=== PATIENT | female | born 1955 | race Two or more races ===

== ENCOUNTER → 2019-11-05 07:20 | Outpatient (CLI) | payer OTHER | END | disposition home or self-care (01) | LOC: LAB 07:20 | PROVIDERS: ATTEND Internal Medicine | DX: E03.8 Other specified hypothyroidism (principal); I10 Essential (primary) hypertension; M54.5 Low back pain; Z01.810 Encounter for preprocedural cardiovascular examination; E55.9 Vitamin D deficiency, unspecified; F17.200 Nicotine dependence, unspecified, uncomplicated; Z12.11 Encounter for screening for malignant neoplasm of colon; Z12.31 Encounter for screening mammogram for malignant neoplasm of breast ==

== ENCOUNTER 2019-11-05 08:24 | Outpatient (CLI) | payer OTHER | END 2019-11-05 08:36 | disposition home or self-care (01) | LOC: MAMO-SONO 08:24 | PROVIDERS: ATTEND Internal Medicine | DX: Z12.31 Encounter for screening mammogram for malignant neoplasm of breast (principal); I10 Essential (primary) hypertension; M54.5 Low back pain; Z01.810 Encounter for preprocedural cardiovascular examination; E03.8 Other specified hypothyroidism; E55.9 Vitamin D deficiency, unspecified; Z87.891 Personal history of nicotine dependence; Z12.11 Encounter for screening for malignant neoplasm of colon ==

== ENCOUNTER 2022-09-11 09:02 | Outpatient (CLI) | payer OTHER | END 2022-09-11 09:27 | disposition home or self-care (01) | LOC: MRI 09:02 | PROVIDERS: ATTEND Orthopaedic Surgery | DX: S83.200A Bucket-handle tear of unspecified meniscus, current injury, right knee, initial encounter (principal); M25.561 Pain in right knee; M25.562 Pain in left knee | CPT/HCPCS: 73721 ==

== ENCOUNTER 2022-10-04 07:31 | Outpatient (CLI) | payer OTHER | END 2022-10-04 07:34 | disposition home or self-care (01) | LOC: RAD 07:31 | PROVIDERS: ATTEND Orthopaedic Surgery | DX: R07.9 Chest pain, unspecified (principal) ==

== ENCOUNTER 2022-11-30 09:09 | Emergency (ER) | payer OTHER ==
[~2022-11-30] VITALS: Ht 157.5 cm; Wt 58.1 kg
[2022-11-30 11:13] LABS: PH,URINE 6.5 (5.0-8.0); URINE APPEARANCE Clear; URINE BILIRRUBIN Negative (NEGATIVE); URINE BLOOD Negative; URINE COLOR Yellow; URINE GLUCOSE Negative (NEGATIVE); URINE LEUKOCYTE Negative; URINE NITRATE Negative; URINE PROTEIN Negative (NEGATIVE); URINE UROBILINOGEN 0.2 E.U./dl
[2022-11-30 11:18] LABS: HEMATOCRIT 35.4 % (36.0-45.00); HEMOGLOBIN 11.9 g/dL (12.0-15.00); MEAN CELL VOLUME 99.2 fL (80.00-100.00); MEAN CORPUSCULAR HEMOGLOBIN 33.4 pg (27.00-32.0); MEAN CORPUSCULAR HGB CONC 33.7 g/dl (32.0-36.0); PLATELET COUNT 435 K/uL (150-450); RED BLOOD COUNT 3.57 M/uL (4.00-6.00); RED CELL DISTRIBUTION WIDTH 13.8 % (11.5-14.5); URINE BACTERIA 426.8 uL (0.0-1933); URINE WBC 5.7 uL (0.0-23.2)
[2022-11-30 11:51] LABS: ALBUMIN 3.2 gm/dL (3.4-5.0); BILIRUBIN TOTAL 0.74 mg/dL (0.3-1.2); BILIRUBIN,CONJUGATED 0.28 mg/dL (0.0-0.2); BILIRUBIN,UNCONJUGATED 0.46 mg/dL (0.0-0.6); CALCIUM 9.5 mg/dL (8.5-10.1); CREATININE SERUM 0.62 mg/dL (0.55-1.02); GFR 96.6; POTASSIUM 5.08 mEq/L (3.5-5.1)
== END 2022-11-30 16:24 | disposition home or self-care (01) ==
LOC: ER 09:10
PROVIDERS: General Practice
DX: K59.09 Other constipation (principal); Z88.0 Allergy status to penicillin
CPT/HCPCS: 36415; 74177; 96365; 99284; J3490; J7030; Q9965

== ENCOUNTER 2022-12-14 06:45 | Emergency (ER) | payer OTHER ==
[~2022-12-14] VITALS: Ht 157.5 cm; Wt 54.4 kg
[2022-12-14 09:14] LABS: HEMATOCRIT 33.8 % (36.0-45.00); HEMOGLOBIN 11.2 g/dL (12.0-15.00); MEAN CELL VOLUME 96.7 fL (80.00-100.00); MEAN CORPUSCULAR HEMOGLOBIN 31.9 pg (27.00-32.0); PLATELET COUNT 380 K/uL (150-450); RED CELL DISTRIBUTION WIDTH 14.2 % (11.5-14.5)
[2022-12-14 09:50] LABS: CALCIUM 9.1 mg/dL (8.5-10.1); CREATININE SERUM 0.82 mg/dL (0.55-1.02); GFR 69.96; POTASSIUM 4.82 mEq/L (3.5-5.1)
== END 2022-12-14 14:24 | disposition home or self-care (01) ==
LOC: ER 06:45
PROVIDERS: Emergency Medicine
DX: R14.0 Abdominal distension (gaseous) (principal); R16.0 Hepatomegaly, not elsewhere classified; J90 Pleural effusion, not elsewhere classified; Z88.0 Allergy status to penicillin

== ENCOUNTER 2022-12-28 15:24 | Inpatient (IN) | payer OTHER ==
[~2022-12-28] VITALS: Ht 157.5 cm; Wt 64.0 kg
[2022-12-28] MEDS ORDERED: FAMOTIDINE40 MG PO (15:33)
[2022-12-28] MEDS ORDERED: AMLODIPINE-BEN1 EAC2 PO (15:33)
[2022-12-28] MEDS ORDERED: ST. JOSEPH ASPI81 M2 PO (15:33)
[2022-12-28] MEDS ORDERED: FENOFIBRIC ACI135 MG PO (15:34)
[2022-12-28 17:30] LABS: URINE APPEARANCE Cloudy; URINE BILIRRUBIN Small (NEGATIVE); URINE BLOOD Negative; URINE COLOR Dark Yellow; URINE GLUCOSE Negative (NEGATIVE); URINE LEUKOCYTE Small; URINE NITRATE Negative; URINE PROTEIN Negative (NEGATIVE)
[2022-12-28 17:31] LABS: URINE EPITHELIAL CELLS 27.3 uL (0.0-38.8); URINE RBC 20.9 uL (0.0-20.8)
[2022-12-28 17:32] LABS: MEAN CELL VOLUME 97.8 fL (80.00-100.00); MEAN CORPUSCULAR HGB CONC 31.3 g/dl (32.0-36.0); RED BLOOD COUNT 3.27 M/uL (4.00-6.00); RED CELL DISTRIBUTION WIDTH 14.6 % (11.5-14.5)
[2022-12-28 17:43] LABS: INR 1.1; PARTIAL THROMBOPLASTIN TIME 29.3 SECONDS (22.0-34.0); PROTHROMBIN TIME 11.5 SECONDS (9.0-11.5)
[2022-12-28 17:45] LABS: ABG PH 7.418 (7.35-7.45); ABG PO2 64.1 mmHg (80-100); ABG pCO2 28.2 mmHg (35-45); BASE EXCESS -5.1 mmol/l; BICARBONATE 17.8 mmol/l (23-25); SaO2 92.2 %; Tco2 18.7 mmol/l
[2022-12-28 17:46] LABS: allen test SATISFACTORY; o2 21 %; puncture site RADIAL LEFT
[2022-12-28 17:46] LABS: MEAN CORPUSCULAR HEMOGLOBIN 30.5 pg (27.00-32.0); PLATELET COUNT 733 K/uL (150-450)
[2022-12-28 17:48] LABS: ALBUMIN 2.4 gm/dL (3.4-5.0); BILIRUBIN TOTAL 2.74 mg/dL (0.3-1.2); BILIRUBIN,CONJUGATED 2.44 mg/dL (0.0-0.2); BILIRUBIN,UNCONJUGATED 0.3 mg/dL (0.0-0.6); CALCIUM 9.6 mg/dL (8.5-10.1); CREATININE SERUM 1.66 mg/dL (0.55-1.02); GLOBULINA 4.7 G/DL (2.4-3.5); POTASSIUM 5.36 mEq/L (3.5-5.1); TOTAL PROTEIN 7.1 gm/dL (6.4-8.2)
[2022-12-28 17:51] LABS: URINE MUCUS MODERATE
[2022-12-28 23:46] LABS: CKMB 2.6 NG/ML (0.5-3.6)
[2022-12-29 07:31] LABS: INR 1.09; PARTIAL THROMBOPLASTIN TIME 31.9 SECONDS (22.0-34.0); PROTHROMBIN TIME 11.4 SECONDS (9.0-11.5)
[2022-12-29 07:35] LABS: HEMATOCRIT 29.2 % (36.0-45.00); HEMOGLOBIN 9.4 g/dL (12.0-15.00); MEAN CELL VOLUME 98.6 fL (80.00-100.00); MEAN CORPUSCULAR HEMOGLOBIN 31.6 pg (27.00-32.0); MEAN CORPUSCULAR HGB CONC 32.1 g/dl (32.0-36.0); PLATELET COUNT 624 K/uL (150-450); RED BLOOD COUNT 2.96 M/uL (4.00-6.00); RED CELL DISTRIBUTION WIDTH 14.5 % (11.5-14.5)
[2022-12-29 07:49] LABS: URINE APPEARANCE Turbid; URINE BILIRRUBIN Small (NEGATIVE); URINE BLOOD Moderate; URINE COLOR Dark Yellow; URINE GLUCOSE Negative (NEGATIVE); URINE LEUKOCYTE Large; URINE NITRATE Negative; URINE UROBILINOGEN 0.2 E.U./dl
[2022-12-29 07:53] LABS: URINE RBC 96.8 uL (0.0-20.8)
[2022-12-29 07:59] LABS: ALBUMIN 2.8 gm/dL (3.4-5.0); BILIRUBIN TOTAL 2.25 mg/dL (0.3-1.2); BILIRUBIN,CONJUGATED 1.97 mg/dL (0.0-0.2); BILIRUBIN,UNCONJUGATED 0.28 mg/dL (0.0-0.6); CALCIUM 9.3 mg/dL (8.5-10.1); CREATININE SERUM 1.73 mg/dL (0.55-1.02); GFR 29.56; GLOBULINA 3.4 G/DL (2.4-3.5); TOTAL PROTEIN 6.2 gm/dL (6.4-8.2)
[2022-12-29 08:07] LABS: CKMB 2.8 NG/ML (0.5-3.6)
[2022-12-29 08:22] LABS: URINE EPITHELIAL CELLS > 201.7 uL (0.0-38.8)
[2022-12-29 08:23] LABS: URINE PROTEIN 100 (NEGATIVE)
[2022-12-29 08:30] LABS: URINE YEAST NEGATIVE /hpf
[2022-12-29 09:22] LABS: C-REACTIVE PROTEIN 10.5 MG/DL (0.00-0.29); POTASSIUM 5.97 mEq/L (3.5-5.1)
[2022-12-29 16:05] LABS: CKMB 3.5 NG/ML (0.5-3.6)
[2022-12-31 06:25] LABS: HEMATOCRIT 27.1 % (36.0-45.00); MEAN CELL VOLUME 96.6 fL (80.00-100.00); MEAN CORPUSCULAR HEMOGLOBIN 32.2 pg (27.00-32.0); MEAN CORPUSCULAR HGB CONC 33.3 g/dl (32.0-36.0); PLATELET COUNT 606 K/uL (150-450); RED BLOOD COUNT 2.81 M/uL (4.00-6.00); RED CELL DISTRIBUTION WIDTH 14.7 % (11.5-14.5)
[2022-12-31 07:30] LABS: ALBUMIN 2.5 gm/dL (3.4-5.0); BILIRUBIN TOTAL 1.9 mg/dL (0.3-1.2); CALCIUM 8.8 mg/dL (8.5-10.1); CREATININE SERUM 1.51 mg/dL (0.55-1.02); GFR 34.58; GLOBULINA 3.3 G/DL (2.4-3.5); POTASSIUM 5.62 mEq/L (3.5-5.1); TOTAL PROTEIN 5.8 gm/dL (6.4-8.2)
[2022-12-31 19:28] LABS: BILI PERITONEAL FLUID 2.41 mg/dl; TP PERITONEAL FLUID 4.5 g/dl
== END 2023-01-01 12:25 | disposition home or self-care (01) | DRG 442 ==
LOC: ER 15:24 → MEDI 20:49
PROVIDERS: General Practice; Radiology Vascular & Interventional Radiology; ADMIT Internal Medicine; ATTEND Internal Medicine
PROC: BW40ZZZ Ultrasonography of Abdomen (ICD-10-PCS; 2022-12-28)
PROC: BW21ZZZ Computerized Tomography (CT Scan) of Abdomen and Pelvis (ICD-10-PCS; 2022-12-28)
PROC: BW21ZZZ Computerized Tomography (CT Scan) of Abdomen and Pelvis (ICD-10-PCS; 2022-12-29)
PROC: 0W9G3ZX Drainage of Peritoneal Cavity, Percutaneous Approach, Diagnostic (ICD-10-PCS; principal; 2022-12-31)
PROC: 0F923ZX Drainage of Left Lobe Liver, Percutaneous Approach, Diagnostic (ICD-10-PCS; 2022-12-31)
DX: K76.9 Liver disease, unspecified (principal); C22.0 Liver cell carcinoma; E87.1 Hypo-osmolality and hyponatremia; N17.9 Acute kidney failure, unspecified; K72.90 Hepatic failure, unspecified without coma; I10 Essential (primary) hypertension; E78.5 Hyperlipidemia, unspecified; D72.829 Elevated white blood cell count, unspecified; Z87.891 Personal history of nicotine dependence; F10.21 Alcohol dependence, in remission

== ENCOUNTER 2023-01-09 08:31 | Inpatient (IN) | payer OTHER ==
[~2023-01-09] VITALS: Ht 152.4 cm; Wt 61.2 kg
[~2023-01-09 08:31] MED LIST: AMLODIPINE-BEN1 EAC2 PO; FAMOTIDINE40 MG PO; FENOFIBRIC ACI135 MG PO; ST. JOSEPH ASPI81 M2 PO
[2023-01-09] MEDS ORDERED: ZOFRAN8 MG (09:19)
[2023-01-09] MEDS ORDERED: FENOFIBRIC ACI135 MG (09:21)
[2023-01-09] MEDS ORDERED: OMEGA 3 1,0001 EACH (09:22)
[2023-01-09 11:13] LABS: HEMATOCRIT 32.6 % (36.0-45.00); HEMOGLOBIN 10.8 g/dL (12.0-15.00); MEAN CELL VOLUME 96.3 fL (80.00-100.00); MEAN CORPUSCULAR HGB CONC 33.2 g/dl (32.0-36.0); RED BLOOD COUNT 3.38 M/uL (4.00-6.00); RED CELL DISTRIBUTION WIDTH 14.2 % (11.5-14.5)
[2023-01-09 11:15] LABS: PLATELET COUNT 526 K/uL (150-450)
[2023-01-09 11:53] LABS: INR 1.05; PARTIAL THROMBOPLASTIN TIME 25.6 SECONDS (22.0-34.0)
[2023-01-09 12:32] LABS: ALBUMIN 2.2 gm/dL (3.4-5.0); BILIRUBIN TOTAL 1.08 mg/dL (0.3-1.2); BILIRUBIN,CONJUGATED 0.98 mg/dL (0.0-0.2); BILIRUBIN,UNCONJUGATED 0.1 mg/dL (0.0-0.6); CALCIUM 8.6 mg/dL (8.5-10.1); CREATININE SERUM 3.12 mg/dL (0.55-1.02); GFR 14.97; TOTAL PROTEIN 6.1 gm/dL (6.4-8.2)
[2023-01-09 15:57] LABS: POTASSIUM 6.85 mEq/L (3.5-5.1)
[2023-01-09 17:06] LABS: URINE APPEARANCE Cloudy; URINE BILIRRUBIN Negative (NEGATIVE); URINE BLOOD Negative; URINE COLOR Dark Yellow; URINE GLUCOSE Negative (NEGATIVE); URINE LEUKOCYTE Moderate; URINE NITRATE Negative; URINE PROTEIN Trace (NEGATIVE)
[2023-01-09 17:11] LABS: URINE BACTERIA 120.9 uL (0.0-1933); URINE EPITHELIAL CELLS 17.1 uL (0.0-38.8); URINE RBC 178.7 uL (0.0-20.8); URINE WBC 193.5 uL (0.0-23.2)
[2023-01-09 17:39] LABS: URINE YEAST MODERATE /hpf
[2023-01-09 17:40] LABS: URINE MUCUS SCANT
[2023-01-09 20:27] LABS: URINE APPEARANCE Cloudy; URINE BILIRRUBIN Moderate (NEGATIVE); URINE BLOOD Negative; URINE COLOR Dark Yellow; URINE GLUCOSE Negative (NEGATIVE); URINE LEUKOCYTE Moderate; URINE NITRATE Negative; URINE PROTEIN Trace (NEGATIVE)
[2023-01-09 20:31] LABS: URINE BACTERIA 176.3 uL (0.0-1933); URINE EPITHELIAL CELLS 6.6 uL (0.0-38.8); URINE RBC 191.2 uL (0.0-20.8); URINE WBC 146.5 uL (0.0-23.2)
[2023-01-09 20:38] LABS: ABG PH 7.353 (7.35-7.45); ABG PO2 74.2 mmHg (80-100); ABG pCO2 28.7 mmHg (35-45); BASE EXCESS -8.4 mmol/l; BICARBONATE 15.6 mmol/l (23-25); SaO2 93.5 %; Tco2 16.5 mmol/l
[2023-01-09 20:39] LABS: allen test SATISFACTORY; o2 21 %; puncture site RADIAL RIGHT
[2023-01-09 20:49] LABS: MAGNESIUM 2.4 mg/dL (1.8-2.4); PHOSPHOROUS 7.3 mg/dL (2.5-4.9)
[2023-01-09 21:18] LABS: URINE MUCUS SCANT
[2023-01-09 21:19] LABS: URINE YEAST MODERATE /hpf
[2023-01-09 21:20] LABS: URINE CRYSTALS MODERATE /HPF
[2023-01-11 04:12] LABS: HEMATOCRIT 28.8 % (36.0-45.00); MEAN CELL VOLUME 95.3 fL (80.00-100.00); MEAN CORPUSCULAR HGB CONC 33.2 g/dl (32.0-36.0); PLATELET COUNT 385 K/uL (150-450); RED BLOOD COUNT 3.02 M/uL (4.00-6.00); RED CELL DISTRIBUTION WIDTH 14.8 % (11.5-14.5)
[2023-01-11 04:34] LABS: HEMOGLOBIN 9.5 g/dL (12.0-15.00); MEAN CORPUSCULAR HEMOGLOBIN 31.4 pg (27.00-32.0)
[2023-01-11 04:38] LABS: ALBUMIN 2.4 gm/dL (3.4-5.0); BILIRUBIN TOTAL 0.84 mg/dL (0.3-1.2); CALCIUM 7.6 mg/dL (8.5-10.1); CREATININE SERUM 1.53 mg/dL (0.55-1.02); GFR 34.06; MAGNESIUM 2.2 mg/dL (1.8-2.4); PHOSPHOROUS 5.2 mg/dL (2.5-4.9); POTASSIUM 4.23 mEq/L (3.5-5.1); TOTAL PROTEIN 5.4 gm/dL (6.4-8.2)
[2023-01-11 13:03] LABS: URINE APPEARANCE Turbid; URINE BILIRRUBIN Negative (NEGATIVE); URINE BLOOD Moderate; URINE COLOR Yellow; URINE GLUCOSE Negative (NEGATIVE); URINE LEUKOCYTE Large; URINE NITRATE Negative; URINE PROTEIN 30 (NEGATIVE); URINE UROBILINOGEN 0.2 E.U./dl
[2023-01-11 13:04] LABS: URINE EPITHELIAL CELLS 74.5 uL (0.0-38.8); URINE RBC 935.4 uL (0.0-20.8)
[2023-01-11 13:58] LABS: URINE CRYSTALS MANY /HPF; URINE YEAST MANY /hpf
[2023-01-14 07:10] LABS: ALBUMIN 2.2 gm/dL (3.4-5.0); BILIRUBIN TOTAL 0.75 mg/dL (0.3-1.2); CALCIUM 8.1 mg/dL (8.5-10.1); CREATININE SERUM 2.73 mg/dL (0.55-1.02); GFR 17.46; GLOBULINA 2.6 G/DL (2.4-3.5); POTASSIUM 3.93 mEq/L (3.5-5.1); TOTAL PROTEIN 4.8 gm/dL (6.4-8.2)
[2023-01-15 06:09] LABS: HEMATOCRIT 30.2 % (36.0-45.00); HEMOGLOBIN 9.9 g/dL (12.0-15.00); MEAN CELL VOLUME 95.1 fL (80.00-100.00); MEAN CORPUSCULAR HGB CONC 32.6 g/dl (32.0-36.0); PLATELET COUNT 349 K/uL (150-450); RED BLOOD COUNT 3.18 M/uL (4.00-6.00); RED CELL DISTRIBUTION WIDTH 14.3 % (11.5-14.5)
[2023-01-15 07:08] LABS: ALBUMIN 2.1 gm/dL (3.4-5.0); BILIRUBIN TOTAL 0.64 mg/dL (0.3-1.2); CALCIUM 7.9 mg/dL (8.5-10.1); CREATININE SERUM 3.33 mg/dL (0.55-1.02); GFR 13.88; GLOBULINA 2.6 G/DL (2.4-3.5); POTASSIUM 4.57 mEq/L (3.5-5.1); TOTAL PROTEIN 4.7 gm/dL (6.4-8.2)
[2023-01-17 05:57] LABS: INR 1.12; PARTIAL THROMBOPLASTIN TIME 34.2 SECONDS (22.0-34.0); PROTHROMBIN TIME 11.7 SECONDS (9.0-11.5)
[2023-01-17 06:20] LABS: HEMATOCRIT 30.6 % (36.0-45.00); HEMOGLOBIN 10.3 g/dL (12.0-15.00); MEAN CELL VOLUME 94.5 fL (80.00-100.00); MEAN CORPUSCULAR HEMOGLOBIN 31.8 pg (27.00-32.0); MEAN CORPUSCULAR HGB CONC 33.6 g/dl (32.0-36.0); PLATELET COUNT 290 K/uL (150-450); RED BLOOD COUNT 3.24 M/uL (4.00-6.00); RED CELL DISTRIBUTION WIDTH 14.5 % (11.5-14.5)
[2023-01-17 14:19] LABS: URINE APPEARANCE Clear; URINE BILIRRUBIN Negative (NEGATIVE); URINE BLOOD Negative; URINE COLOR Yellow; URINE GLUCOSE Negative (NEGATIVE); URINE LEUKOCYTE Small; URINE NITRATE Negative; URINE PROTEIN Trace (NEGATIVE); URINE UROBILINOGEN 0.2 E.U./dl
[2023-01-17 14:21] LABS: URINE BACTERIA 52.9 uL (0.0-1933); URINE EPITHELIAL CELLS 1.8 uL (0.0-38.8); URINE RBC 128.9 uL (0.0-20.8); URINE WBC 36.7 uL (0.0-23.2)
[2023-01-17 14:50] LABS: URINE CRYSTALS FEW /HPF
[2023-01-17 14:51] LABS: URINE YEAST MODERATE /hpf
[2023-01-18 07:13] LABS: ALBUMIN 1.6 gm/dL (3.4-5.0); BILIRUBIN TOTAL 0.61 mg/dL (0.3-1.2); CALCIUM 7.7 mg/dL (8.5-10.1); CREATININE SERUM 2.12 mg/dL (0.55-1.02); GFR 23.38; GLOBULINA 2.8 G/DL (2.4-3.5); MAGNESIUM 2.1 mg/dL (1.8-2.4); PHOSPHOROUS 6.4 mg/dL (2.5-4.9); POTASSIUM 4.87 mEq/L (3.5-5.1); TOTAL PROTEIN 4.4 gm/dL (6.4-8.2)
[2023-01-18 07:25] LABS: C-REACTIVE PROTEIN 11.4 MG/DL (0.00-0.29)
[2023-01-20 08:53] LABS: CREATININE SERUM 1.55 mg/dL (0.55-1.02); GFR 33.56; POTASSIUM 5.18 mEq/L (3.5-5.1)
[2023-01-22 06:20] LABS: HEMATOCRIT 32.6 % (36.0-45.00); HEMOGLOBIN 10.7 g/dL (12.0-15.00); MEAN CELL VOLUME 95.2 fL (80.00-100.00); MEAN CORPUSCULAR HEMOGLOBIN 31.1 pg (27.00-32.0); MEAN CORPUSCULAR HGB CONC 32.7 g/dl (32.0-36.0); PLATELET COUNT 394 K/uL (150-450); RED BLOOD COUNT 3.43 M/uL (4.00-6.00); RED CELL DISTRIBUTION WIDTH 14.4 % (11.5-14.5)
[2023-01-22 07:00] LABS: CREATININE SERUM 1.02 mg/dL (0.55-1.02); GFR 54.39; POTASSIUM 5.01 mEq/L (3.5-5.1)
== END 2023-01-22 15:26 | disposition home or self-care (01) | DRG 682 ==
LOC: ER 08:31 → MEDI 19:04 → ICU-2 19:04 → MEDJ 19:04 → ICU-2 21:48 → ICU 01-11 21:11 → MEDJ 01-15 20:49
PROVIDERS: General Practice; Internal Medicine; Internal Medicine Infectious Disease; Internal Medicine Nephrology; Radiology Vascular & Interventional Radiology; ADMIT Internal Medicine; ATTEND Internal Medicine
PROC: BW21ZZZ Computerized Tomography (CT Scan) of Abdomen and Pelvis (ICD-10-PCS; 2023-01-09)
PROC: 0W9G3ZZ Drainage of Peritoneal Cavity, Percutaneous Approach (ICD-10-PCS; 2023-01-10)
PROC: B24BZZZ Ultrasonography of Heart with Aorta (ICD-10-PCS; 2023-01-14)
PROC: B54DZZZ Ultrasonography of Bilateral Lower Extremity Veins (ICD-10-PCS; 2023-01-15)
PROC: 4A12X4Z Monitoring of Cardiac Electrical Activity, External Approach (ICD-10-PCS; 2023-01-15)
PROC: 0W9G3ZZ Drainage of Peritoneal Cavity, Percutaneous Approach (ICD-10-PCS; 2023-01-16)
PROC: 06H03DZ Insertion of Intraluminal Device into Inferior Vena Cava, Percutaneous Approach (ICD-10-PCS; principal; 2023-01-17 20:00)
DX: N17.9 Acute kidney failure, unspecified (principal); K76.7 Hepatorenal syndrome; R18.8 Other ascites; C78.7 Secondary malignant neoplasm of liver and intrahepatic bile duct; C79.89 Secondary malignant neoplasm of other specified sites; C79.51 Secondary malignant neoplasm of bone; I82.412 Acute embolism and thrombosis of left femoral vein; I82.422 Acute embolism and thrombosis of left iliac vein; I82.432 Acute embolism and thrombosis of left popliteal vein; I82.442 Acute embolism and thrombosis of left tibial vein; I12.0 Hypertensive chronic kidney disease with stage 5 chronic kidney disease or end stage renal disease; N18.6 End stage renal disease; K74.69 Other cirrhosis of liver; E87.5 Hyperkalemia; E78.5 Hyperlipidemia, unspecified; Z20.822 Contact with and (suspected) exposure to COVID-19

== ENCOUNTER 2023-01-23 22:21 | Inpatient (IN) | payer OTHER ==
[~2023-01-23] VITALS: Ht 157.5 cm; Wt 54.4 kg
[~2023-01-23 22:21] MED LIST changes: +FENOFIBRIC ACI135 MG; +OMEGA 3 1,0001 EACH; +ZOFRAN8 MG
[2023-01-23 23:29] LABS: HEMATOCRIT 31.2 % (36.0-45.00); HEMOGLOBIN 10.2 g/dL (12.0-15.00); MEAN CELL VOLUME 93.9 fL (80.00-100.00); MEAN CORPUSCULAR HEMOGLOBIN 30.8 pg (27.00-32.0); MEAN CORPUSCULAR HGB CONC 32.8 g/dl (32.0-36.0); PLATELET COUNT 405 K/uL (150-450); RED BLOOD COUNT 3.32 M/uL (4.00-6.00); RED CELL DISTRIBUTION WIDTH 14.6 % (11.5-14.5)
[2023-01-23 23:36] LABS: INR 1.02; PARTIAL THROMBOPLASTIN TIME 23.9 SECONDS (22.0-34.0); PROTHROMBIN TIME 10.7 SECONDS (9.0-11.5)
[2023-01-23 23:42] LABS: ALBUMIN 1.9 gm/dL (3.4-5.0); BILIRUBIN TOTAL 0.46 mg/dL (0.3-1.2); BILIRUBIN,CONJUGATED 0.3 mg/dL (0.0-0.2); BILIRUBIN,UNCONJUGATED 0.16 mg/dL (0.0-0.6); CALCIUM 8.4 mg/dL (8.5-10.1); CREATININE SERUM 1.45 mg/dL (0.55-1.02); GFR 36.24; GLOBULINA 3.4 G/DL (2.4-3.5); POTASSIUM 5.47 mEq/L (3.5-5.1); TOTAL PROTEIN 5.3 gm/dL (6.4-8.2)
[2023-01-24 00:02] LABS: URINE APPEARANCE Clear; URINE BILIRRUBIN Negative (NEGATIVE); URINE BLOOD Negative; URINE COLOR Dark Yellow; URINE GLUCOSE Negative (NEGATIVE); URINE LEUKOCYTE Small; URINE NITRATE Negative; URINE PROTEIN Negative (NEGATIVE)
[2023-01-24 00:05] LABS: URINE BACTERIA 41.5 uL (0.0-1933); URINE EPITHELIAL CELLS 24.2 uL (0.0-38.8); URINE RBC 14.6 uL (0.0-20.8); URINE WBC 37.4 uL (0.0-23.2)
[2023-01-24 00:46] LABS: URINE EPITHELIAL CELLS 0-4 /HPF
[2023-01-24 01:07] LABS: ABG PH 7.424 (7.35-7.45); ABG PO2 195.4 mmHg (80-100); ABG pCO2 25.6 mmHg (35-45); BASE EXCESS -6.1 mmol/l; BICARBONATE 16.4 mmol/l (23-25); SaO2 99.7 %; Tco2 17.1 mmol/l
[2023-01-24 01:08] LABS: o2 100 %
[2023-01-24 01:09] LABS: allen test SATISFACTORY; puncture site RADIAL RIGHT
[2023-01-24 02:33] LABS: INR 1.04; PARTIAL THROMBOPLASTIN TIME 27.1 SECONDS (22.0-34.0); PROTHROMBIN TIME 10.9 SECONDS (9.0-11.5)
[2023-01-24 06:56] LABS: MAGNESIUM 1.9 mg/dL (1.8-2.4); PHOSPHOROUS 4.3 mg/dL (2.5-4.9)
[2023-01-25 06:04] LABS: ALBUMIN 2.5 gm/dL (3.4-5.0); BILIRUBIN TOTAL 0.52 mg/dL (0.3-1.2); CALCIUM 8.4 mg/dL (8.5-10.1); CREATININE SERUM 1.18 mg/dL (0.55-1.02); GFR 45.97; GLOBULINA 3.8 G/DL (2.4-3.5); TOTAL PROTEIN 6.3 gm/dL (6.4-8.2)
[2023-01-26 08:12] LABS: ALBUMIN 1.9 gm/dL (3.4-5.0); BILIRUBIN TOTAL 0.37 mg/dL (0.3-1.2); CREATININE SERUM 1.09 mg/dL (0.55-1.02); GFR 50.38; GLOBULINA 3.2 G/DL (2.4-3.5); POTASSIUM 5.31 mEq/L (3.5-5.1); TOTAL PROTEIN 5.1 gm/dL (6.4-8.2)
== END 2023-01-26 17:00 | disposition other institution (70) | DRG 871 ==
LOC: ER 22:21 → ICU-2 01-24 01:04
PROVIDERS: General Practice; Internal Medicine; ADMIT Internal Medicine; ATTEND Internal Medicine
PROC: BW21ZZZ Computerized Tomography (CT Scan) of Abdomen and Pelvis (ICD-10-PCS; principal; 2023-01-24)
DX: A41.9 Sepsis, unspecified organism (principal); R65.21 Severe sepsis with septic shock; N17.9 Acute kidney failure, unspecified; C22.0 Liver cell carcinoma; C79.51 Secondary malignant neoplasm of bone; K70.31 Alcoholic cirrhosis of liver with ascites; N18.9 Chronic kidney disease, unspecified; E78.5 Hyperlipidemia, unspecified